=== PATIENT | female | born 1990 | race American Indian/Alaskan Native ===

== ENCOUNTER 2019-07-24 18:56 | Emergency (ER) | payer MEDICAID ==
--- NOTE | 2019-07-24 19:28 | Emergency Department Report ---
Blank Doc - Documentation Documentation: 29-year-old female that presents with acute headache and uncontrolled HTN. De nies any head injuries, worst headache, or blurry vision. Stated is a new acute headache. This initial assessment/diagnostic orders/clinical plan/treatment(s) is/are subject to change based on patient's health status, clinical progression and re- assessment by fellow clinical providers in the ED. Further treatment and workup at subsequent clinical providers discretion. Patient/guardians urged not to elope from the ED as their condition may be serious if not clinically assessed and managed. Initial orders include: 1- Patient sent to [facility] for further evaluation and treatment 2- CT headache
[2019-07-24 19:29] VITALS: BP 150/100
--- NOTE | 2019-07-24 21:43 | Cat Scan Report ---
HEAD WITHOUT CONTRAST HISTORY: COMPARISON: None TECHNIQUE: CT imaging of the head was performed in the axial, sagittal, and coronal projections and bone algori thm in axial projection in the soft tissue algorithm. All CT scans at this location are performed using CT dose reduction for ALARA by means of automated e xposure control. CONTRAST: None. FINDINGS: Cerebral and Cerebellar Hemispheres: No evidence of mass or mass effect. No midline shift. No acute hemorrhage. No acute cortical infarction. No extra-axial fluid collection. Ventricles: Normal in size and configuration for age. Osseous Structures: No significant abnormality. Visualized Paranasal Sinuses: No significant abnormality. Additional Findings: None IMPRESSION: 1. No acute intracranial abnormality. NOTE: Acute infarct may not be visible by noncontrast CT. Signer Name: Darrius Paige MD Signed: 07/24/2019 9:39 PM Workstation Name: [id number]
[2019-07-24] MEDS ORDERED: dexAMETHasone 20 MG/5 ML VIAL IM ONE (22:02)
[2019-07-24] MEDS ORDERED: BUTALB/ACETAMINOPHEN/CAFFEINE TAB PO ONE (22:02)
[2019-07-24] MEDS ORDERED: KETOROLAC 30 MG/1 ML INJ IM ONE (22:02)
[2019-07-24] MEDS ORDERED: ONDANSETRON 4 MG ODT TAB PO ONE (22:02)
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
== END 2019-07-25 00:10 | disposition home or self-care (01) ==
LOC: ED 18:56
DX: G44.209 Tension-type headache, unspecified, not intractable (principal); M62.838 Other muscle spasm; G43.909 Migraine, unspecified, not intractable, without status migrainosus; J45.909 Unspecified asthma, uncomplicated; F17.200 Nicotine dependence, unspecified, uncomplicated
CPT/HCPCS: 70450; 72125; 96372; 99283; J1100; J1885; Q0162

== ENCOUNTER 2020-08-18 20:02 | Emergency (ER) | payer MEDICAID ==
[2020-08-18 20:44] VITALS: BP 184/112
[2020-08-18 21:25] LABS: Basophils % (Auto) 0.3 % (0.0-1.8); Eosinophils # (Auto) 0.3 K/mm3 (0.0-0.4); Eosinophils % (Auto) 2.3 % (0.0-4.3); Hematocrit 40.5 % (30.3-42.9); Hemoglobin 13.6 gm/dl (10.1-14.3); Lymphocytes # (Auto) 3.3 K/mm3 (1.2-5.4); Lymphocytes % (Auto) 23.3 % (13.4-35.0); Mean Corpuscular HGB Conc 34 % (30-34); Mean Corpuscular Volume 87 fl (79-97); Monocytes # (Auto) 0.7 K/mm3 (0.0-0.8); Monocytes % (Auto) 4.9 % (0.0-7.3); Platelet Count 326 K/mm3 (140-440); Red Blood Count 4.65 M/mm3 (3.65-5.03); Red Cell Distribution Width 14.8 % (13.2-15.2)
[2020-08-18 21:50] LABS: Alanine Aminotransferase 13 units/L (7-56); Albumin 4.1 g/dL (3.9-5); BUN/Creatinine Ratio 14; Blood Urea Nitrogen 7 mg/dL (7-17); Calcium 9.5 mg/dL (8.4-10.2); Hemolysis Index 9
[2020-08-19 02:12] LABS: Bacteria,Urine 1+ /HPF (Negative); Bilirubin,Urine NEG (Negative); Blood,Urine NEG (Negative); Color,Urine Yellow (Yellow); Mucus,Urine 2+ /HPF; Protein,Urine <15 mg/dL mg/dL (Negative); WBC,Urine < 1.0 /HPF (0.0-6.0)
== END 2020-08-19 03:17 | disposition left against medical advice (07) ==
LOC: ED 20:02
DX: R10.9 Unspecified abdominal pain (principal); Z53.21 Procedure and treatment not carried out due to patient leaving prior to being seen by health care provider
CPT/HCPCS: 36415; 80053; 81001; 84703; 85025

== ENCOUNTER 2021-05-31 22:25 | Emergency (ER) | payer MEDICAID ==
[2021-05-31] MEDS ORDERED: INSULIN REGULAR, HUMAN 100 UNITS/1 ML IV ONE (23:22)
[2021-05-31] MEDS ORDERED: SODIUM CHLORIDE 0.9% 1000 ML 1,000 ML IV ONE (23:22)
--- NOTE | 2021-05-31 23:28 | Emergency Department Report ---
ED General Adult HPI - General Chief complaint: Hyperglycemia Stated complaint: BLOOD SUGAR Time Seen by Provider: 05/31/21 23:20 Source: patient Mode of arrival: Ambulatory Limitations: No Limitations - History of Present Illness Initial comments: Patient presents with elevated blood sugar. Patient has not felt well for the last couple of days. She has felt tired and under the weather. She has been thirsty. She went to her regular doctors today. They checked her blood sugar and was found to be elevated. She was told to come here to be evaluated. Patient has been a "borderline diabetic." She is not on any medication. There is a family history of diabetes. She does report polydipsia and polyuria. She has had no cough or congestion. There is no vomit or diarrhea. She has had no recent travel or trauma. - Related Data Previous Rx's Medication Instructions Recorded Last Taken Type Albuterol Mdi (or & Nicu Only) 1 puff IH Q4-6H PRN #1 inha 11/03/13 11/13/15 Rx [ProAir HFA Inhaler] Butalb/Acetamin/Caff 50-325-40 1 tab PO Q6HR PRN #15 tab 07/24/19 Unknown Rx [Fioricet 50-325-40] Ketorolac [Toradol] 10 mg PO Q8H PRN #20 tablet 07/24/19 Unknown Rx methOCARBAMOL [Robaxin TAB] 750 mg PO Q8H PRN #24 tablet 07/24/19 Unknown Rx predniSONE [Deltasone] 40 mg PO QDAY #10 tab 07/24/19 Unknown Rx metFORMIN [Glucophage] 500 mg PO BID #60 tablet 06/01/21 Unknown Rx Allergies Allergy/AdvReac Type Severity Reaction Status Date / Time codeine Allergy Rash Verified 06/01/21 00:01 ED Review of Systems ROS: Stated complaint: BLOOD SUGAR Other details as noted in HPI Comment: All other systems reviewed and negative Constitutional: denies: fever Eyes: denies: eye pain ENT: denies: throat pain Respiratory: denies: cough Cardiovascular: denies: chest pain Endocrine: denies: unexplained weight loss Gastrointestinal: denies: abdominal pain Genitourinary: denies: dysuria Musculoskeletal: denies: back pain Skin: denies: rash Neurological: denies: headache Hematological/Lymphatic: denies: easy bruising ED Past Medical Hx - Past Medical History Hx Hypertension: Yes Hx CVA: Yes (2009, after childbirth) Hx Headaches / Migraines: Yes Hx Asthma: Yes Additional medical history: ovarian cyst, lupus - Surgical History Additional Surgical History: - Family History Family history: diabetes - Social History Smoking Status: Current Every Day Smoker Substance Use Type: None - Medications Home Medications: Home Medications Medication Instructions Recorded Confirmed Last Taken Type Albuterol Mdi (or & Nicu Only) 1 puff IH Q4-6H PRN #1 inha 11/03/13 11/09/14 11/13/15 Rx [ProAir HFA Inhaler] Butalb/Acetamin/Caff 50-325-40 1 tab PO Q6HR PRN #15 tab 07/24/19 Unknown Rx [Fioricet 50-325-40] Ketorolac [Toradol] 10 mg PO Q8H PRN #20 tablet 07/24/19 Unknown Rx methOCARBAMOL [Robaxin TAB] 750 mg PO Q8H PRN #24 tablet 07/24/19 Unknown Rx predniSONE [Deltasone] 40 mg PO QDAY #10 tab 07/24/19 Unknown Rx metFORMIN [Glucophage] 500 mg PO BID #60 tablet 06/01/21 Unknown Rx ED Physical Exam - General Limitations: No Limitations, Other (Pulse ox was noted. Patient is not hypoxic.) General appearance: alert, in no apparent distress - Head Head exam: Present: atraumatic, normocephalic, normal inspection - Eye Eye exam: Present: normal appearance, EOMI. Absent: scleral icterus - ENT ENT exam: Present: normal exam, mucous membranes dry - Neck Neck exam: Present: normal inspection. Absent: meningismus - Respiratory Respiratory exam: Present: normal lung sounds bilaterally. Absent: respiratory distress - Cardiovascular Cardiovascular Exam: Present: normal rhythm, tachycardia - GI/Abdominal GI/Abdominal exam: Present: soft. Absent: distended, tenderness - Extremities Exam Extremities exam: Present: normal capillary refill - Back Exam Back exam: Absent: CVA tenderness (R), CVA tenderness (L) - Neurological Exam Neurological exam: Present: alert, oriented X3, CN II-XII intact. Absent: motor sensory deficit - Psychiatric Psychiatric exam: Present: normal affect, normal mood - Skin Skin exam: Present: warm, dry ED Course Vital Signs 0905/31/21 05/31/21 23:27 23:31 23:45 Pulse Rate 116 H 102 H 113 H Respiratory 17 10 L 24 Rate Blood Pressure Blood Pressure [Right] O2 Sat by Pulse 94 98 96 Oximetry 06/01/21 06/01/21 06/01/21 00:01 00:02 00:15 Pulse Rate 115 H 116 H Respiratory 23 24 Rate Blood Pressure 111/76 Blood Pressure 112/77 [Right] O2 Sat by Pulse 96 97 Oximetry 06/01/21 06/01/21 06/01/21 00:31 00:45 01:01 Pulse Rate 118 H 120 H 115 H Respiratory 18 23 24 Rate Blood Pressure 111/76 111/76 96/60 Blood Pressure [Right] O2 Sat by Pulse 98 99 99 Oximetry 06/01/21 06/01/21 06/01/21 01:15 01:31 01:45 Pulse Rate 113 H 109 H 113 H Respiratory 25 H 21 24 Rate Blood Pressure 111/76 111/76 96/60 Blood Pressure [Right] O2 Sat by Pulse 99 100 99 Oximetry 06/01/21 06/01/21 06/01/21 02:01 02:15 02:31 Pulse Rate 101 H 103 H 99 H Respiratory 25 H 24 22 Rate Blood Pressure 103/69 103/69 103/69 Blood Pressure [Right] O2 Sat by Pulse 100 99 99 Oximetry 06/01/21 06/01/21 06/01/21 02:45 03:01 03:15 Pulse Rate 102 H 102 H 107 H Respiratory 23 23 23 Rate Blood Pressure 103/69 114/60 114/60 Blood Pressure [Right] O2 Sat by Pulse 98 98 99 Oximetry 06/01/21 06/01/21 06/01/21 03:31 03:45 04:01 Pulse Rate 105 H 107 H 109 H Respiratory 20 16 26 H Rate Blood Pressure 114/60 114/60 116/69 Blood Pressure [Right] O2 Sat by Pulse 98 100 98 Oximetry 06/01/21 04:15 Pulse Rate 109 H Respiratory 25 H Rate Blood Pressure 116/69 Blood Pressure [Right] O2 Sat by Pulse 98 Oximetry - Reevaluation(s) Reevaluation #1: 05/31/21 23:28 IV and labs were ordered. Reevaluation #2: 06/01/21 00:13 Labs of been noted. UA was added on. A second liter of saline has been ordered. Reevaluation #3: 06/01/21 00:46 Patient was not in DKA. UA have been noted. There is no evidence of urinary tract infection. After IV fluids and insulin, the patient will be discharged home. She does not require admission. ED Medical Decision Making - Lab Data Result diagrams: 05/31/21 23:34 05/31/21 23:34 - Medical Decision Making Patient presented secondary to elevated blood sugar. She is found to be in new onset diabetes with a blood sugar of 519. She does not have DKA. There is no infectious pathology. There is no electrolyte derangement that would require admission. Patient has been aggressively hydrated and treated here. She is comfortable and home. Critical Care Time: No Critical care attestation.: If time is entered above; I have spent that time in minutes in the direct care of this critically ill patient, excluding procedure time. ED Disposition Clinical Impression: New onset type 2 diabetes mellitus, Dehydration Disposition: HOME / SELF CARE / HOMELESS Is pt being admited?: No Does the pt Need Aspirin: No Condition: Fair Instructions: Type 2 Diabetes Mellitus, Diagnosis, Adult, Tips for Eating Away From Home If You Have Diabetes, Dehydration, Adult, Ichz-cm-Stcu, Type 2 Diabetes Mellitus, Self Care, Adult, Diabetes Mellitus Type 2 in Adults (ED) Additional Instructions: Drink plenty water. Avoid carbohydrates. Follow-up with your regular doctor for further testing and further management. Ask your doctor about diabetic education. Prescriptions: metFORMIN [Glucophage] 500 mg PO BID #60 tablet Referrals: JORGE L HAINES MD [Primary Care Provider] - 3-5 Days FRANKIE BUTT MD [Staff Physician] - 3-5 Days
[2021-05-31 23:54] LABS: Hematocrit 41.3 % (30.3-42.9); Hemoglobin 13.7 gm/dl (10.1-14.3); Mean Corpuscular HGB Conc 33 % (30-34); Mean Corpuscular Volume 84 fl (79-97); Platelet Count 300 K/mm3 (140-440); Red Blood Count 4.91 M/mm3 (3.65-5.03); Red Cell Distribution Width 15.5 % (13.2-15.2)
[2021-05-31 23:58] LABS: BUN/Creatinine Ratio 16; Blood Urea Nitrogen 13 mg/dL (7-17); Calcium 9.9 mg/dL (8.4-10.2); Hemolysis Index 13
[2021-06-01] MEDS ORDERED: SODIUM CHLORIDE 0.9% 1000 ML 1,000 ML IV ONE (00:12)
[2021-06-01 00:31] LABS: Bilirubin,Urine NEG (Negative); Blood,Urine NEG (Negative); Color,Urine Straw (Yellow); Protein,Urine <15 mg/dL mg/dL (Negative); Urobilinogen,Urine < 2.0 mg/dL (<2.0)
[2021-06-01 04:19] VITALS: BP 116/69
== END 2021-06-01 04:20 | disposition home or self-care (01) ==
LOC: ED 22:25
DX: E11.65 Type 2 diabetes mellitus with hyperglycemia (principal); E86.0 Dehydration; I10 Essential (primary) hypertension; Z86.73 Personal history of transient ischemic attack (TIA), and cerebral infarction without residual deficits; G43.909 Migraine, unspecified, not intractable, without status migrainosus; J45.909 Unspecified asthma, uncomplicated; N83.209 Unspecified ovarian cyst, unspecified side; M32.9 Systemic lupus erythematosus, unspecified; Z98.890 Other specified postprocedural states; F17.200 Nicotine dependence, unspecified, uncomplicated; Z88.5 Allergy status to narcotic agent
CPT/HCPCS: 36415; 80048; 81001; 82010; 82962; 85027; 96361; 96374; 99283; J7030; J1815

== ENCOUNTER 2022-02-18 02:06 | Emergency (ER) | payer MEDICAID ==
[2022-02-18 06:02] VITALS: BP 157/102
== END 2022-02-18 06:05 | disposition left against medical advice (07) ==
LOC: ED 02:06
DX: R73.9 Hyperglycemia, unspecified (principal); Z53.21 Procedure and treatment not carried out due to patient leaving prior to being seen by health care provider